=== PATIENT | female | born 1985 | race Hispanic/Latino ===

== ENCOUNTER 2022-03-23 21:03 | Emergency (ER) | payer OTHER ==
[~2022-03-23] VITALS: Ht 162.6 cm; Wt 99.8 kg
[2022-03-23] MEDS ORDERED: IBUP-2070 PO (22:09)
[2022-03-23] MEDS ORDERED: VALA100031 PO (22:09)
[2022-03-23 22:35] VITALS: BP 164/98
== END 2022-03-23 22:57 | disposition home or self-care (01) ==
LOC: EDH 21:03
DX: B02.9 Zoster without complications (principal); Z98.890 Other specified postprocedural states